=== PATIENT | female | born 2000 | race Caucasian/White ===

== ENCOUNTER → 2021-12-14 13:00 | Outpatient (BNVA) | payer OTHER, SELFPAY | PROVIDERS: Visit Provider Nurse Practitioner Women's Health | DX: Z30.9 Encounter for contraceptive management, unspecified (principal) | CPT/HCPCS: 81025 ==

== ENCOUNTER → 2023-02-07 13:25 | Outpatient (BNVA) | payer BC, SELFPAY | PROVIDERS: Visit Provider Nurse Practitioner Women's Health | DX: Z12.4 Encounter for screening for malignant neoplasm of cervix (principal); Z11.3 Encounter for screening for infections with a predominantly sexual mode of transmission | CPT/HCPCS: 86592; 86706; 86803; 87491; 87591; 87806; 88175 ==

== ENCOUNTER → 2023-02-21 12:22 | Outpatient (BNVA) | payer BC, SELFPAY | PROVIDERS: Visit Provider Nurse Practitioner Women's Health | DX: N93.9 Abnormal uterine and vaginal bleeding, unspecified (principal) | CPT/HCPCS: 76830 ==

== ENCOUNTER 2023-08-20 08:27 | Emergency (ER) | payer BC, MEDICAID, SELFPAY ==
[2023-08-20 08:35] VITALS: BP 129/70; PULSE 69; RESP 18; TEMP 36.8; O2SAT 100; BMI 27.2
--- NOTE | 2023-08-20 08:58 | CT_ITS ---
WS: [id number] CT HEAD TECHNIQUE: Noncontrast CT of the head obtained from the skullbase to the vertex. CLINICAL INFORMATION: Headache vision changes right eye 24 weeks COMPARISON: None. DLP: 1006.[address] scans at [facility] use at least one of these dose optimization techniques: automated e xposure control; mA and/or kV adjustment per patient size (includes targeted exams where dose is matc hed to clinical indication); or iterative reconstruction. FINDINGS: No evidence of intracranial hemorrhage or mass effect. Ventricular system and basal cisterns are hunter nt. No extra-axial fluid collections. No evidence of mass or mass effect. Normal ruiz-white different iation. Incidental slightly low-lying cerebellar tonsils. Paranasal sinuses and mastoid air cells are well aerated. .Normal visualized soft tissues. CT/CT head wo con* [id number] IMPRESSION: 1. No evidence of intracranial hemorrhage or mass effect. 2. No acute intracranial findings.
--- NOTE | 2023-08-20 08:58 | ED_ITS ---
HPI - Headache General: Chief Complaint: Headache Stated Complaint: GOOD, facial and arm numbness Time Seen by Provider: 08/20/23 08:41 Source: patient Mode of arrival: ambulatory History of Present Illness: 22-year-old female presents emergency ro om with headache with facial numbness and right arm numbness with vision changes. She had told the nurse it was in her left eye but when I examined her she was reporting it in the right eye. She is approximately 24 weeks gestation. She states when she woke up this morning she had the headache numbness and vision changes. She has had headaches during the but none prior no previous evaluation for headache. MD elicited complaint: migraine Associated symptoms: Deny chest pain, fever(s) or rash Review of Systems Const: Denies: fever(s) or chills Card: Denies: chest pain Resp: Denies: dyspnea GI: Denies: abdominal pain : Denies: dysuria, urinary frequency or urinary urgency Musc: Denies: neck pain or back pain Skin/Breast: Denies: rash PFSH ED PFSH: Medical History No pertinent past medical history neghx: htn,dm,thyroid,dvt/pe PCP: None Surgical History Hx of wisdom tooth extraction (~2019) Family History Family/Other Stroke Maternal Aunt Denies family history of Colon cancer Ovarian cancer Diabetes Heart disease Hypercholesteremia Breast cancer Hypertension Uterine cancer Thyroid disease Physical Exam Const: GENERAL APPEARANCE: cooperative and comfortable ORIENTATION/CONSCIOUSNESS: Yes awake, Yes oriented to person, Yes oriented to place and Yes oriented to time HENMT: COMMON NORMALS: normocephalic, atraumatic and hearing grossly normal bilaterally HEAD & SCALP: normocephalic and atraumatic Resp: COMMON NORMALS: normal respiratory effort, No retractions, No use of accessory muscles and clear to auscultation bilaterally AUSCULTATION: clear to auscultation bilaterally Cardio: COMMON NORMALS: regular rate, regular rhythm and No murmurs present (Cardio) RATE: regular rate RHYTHM: regular rhythm GI: COMMON NORMALS: Soft to palpation and No hepatosplenomegaly present AUSCULTATION: Yes normoactive bowel sounds PALPATION: Yes Soft to palpation, No Tenderness to palpation present (GI), No Guarding due to palpation present (GI) and Yes No hepatosplenomegaly present Extremity: COMMON NORMALS: normal to inspection, capillary refill normal, no clubbing, cyanosis or edema, no calf tenderness and no pedal edema Neuro: SENSORIUM/ORIENTATION: Yes oriented to person, Yes oriented to place and Yes oriented to time OTHER: NIH 0 Skin: COMMON NORMALS: no rashes or lesions noted GENERAL SKIN EXAM: no rashes or lesions noted Course Vital Signs: Vital signs: Vital Signs Temperature 98.3 F 08/20/23 08:35 Pulse Rate 69 08/20/23 08:35 Respiratory Rate 18 08/20/23 08:35 Blood Pressure 122/66 08/20/23 10:00 Pulse Oximetry 99 08/20/23 10:00 Oxygen Delivery Me thod Room Air 08/20/23 08:35 MDM - Headache Medical Decision Making Improved after the Benadryl and Reglan patient declined to fluids CT of the head was negative. Any she is having a migraine variant all of her symptoms she presented with have resolved along with her headache. She is requesting to go home declining the fluids. Will discharge her home with promethazine to use as needed for recurrent headache. She can take that along with Tylenol if needed and encouraged her to follow-up at least by phone with her OB doctor. She has an appointment next week with Dr. Bustillos for routine OB care Medical Records I reviewed the patient's medical records. Lab Data I reviewed the patient's lab results. Radiology Impressions Head CT 08/20/23 08:58 IMPRESSION: 1. No evidence of intracranial hemorrhage or mass effect. 2. No acute intracranial findings. All radiology interpretation(s) finalized by discharge Discharge Plan Discharge Patient Disposition: Home Clinical Impression: Migraine variant, state, incidental Condition: Stable Prescriptions: New promethazine 25 mg tablet 25 mg PO Q6H PRN (Reason: headache) Qty: 10 0RF Discharge Orders: Discharge ED (Routine); Ordered 08/20/23 Ordered By: Tapan Elliott Discharge Diet: Usual diet Discharge Activity: Resume usual activity Patient Instructions: Opioid Safety, Pain Management Activity Restrictions/Additional Instructions: Thank you for choosing [facility] for your healthcare needs today. It is very important that you follow up as instructed or that you return to the Emergency Department should you have concerns or if your condition changes or worsens in any way. You were seen today with a migraine variant. You did respond well to the medications given. Follow-up with your primary care doctor within the week. Jenny anguiano CT of your head did not show any acute abnormalities Coding Level of Care Code ED Mold Technician for Viviana York
[2023-08-20 09:00] VITALS: BP 129/70; O2SAT 99
[2023-08-20] MEDS: sodium chloride 0.9% 1,000 ML 999 ML IV (09:04)
[2023-08-20] MEDS: diphenhydrAMINE 50 mg/mL SDV 1mL IVP (09:05)
[2023-08-20] MEDS: metoclopramide 5 mg/mL SDV 2 mL 10 MG IVP (09:05)
--- NOTE | 2023-08-20 09:15 | PC.NURSE ---
Patient called me into the room and stated I don't want to do this any more . Patient stated that she wanted to talk to the doctor now . Patient stated that she feels like she is going to pass out. I stopped the patient's fluids and told her that the Benadryl was making her feel like she was going to pass out. I spoke with the patient and told her to try and take a few deep breaths in through her nose and out through her mouth. Patient stated it is not helping I want to see the doctor . I spoke with Lexi, he was on a call, he told me to go reassure the patient it is the benadryl making her feel like that. I asked my charge nurse, Sil, to come with me in the room to help reassure the patient and the patient continued to say she was going to pass out and that she didn't want to do this any more. Sil and I placed the patient in the Trendelenburg position and once again instructed her to breath in through her nose and out through her mouth.
[2023-08-20 09:35] VITALS: BP 112/67; O2SAT 100
[2023-08-20 10:00] VITALS: BP 122/66; O2SAT 99
== END 2023-08-20 10:22 | disposition home or self-care (01) ==
PROVIDERS: Emergency Provider Family Medicine
DX: O26.892 Other specified pregnancy related conditions, second trimester (principal); Z3A.24 24 weeks gestation of pregnancy; G43.809 Other migraine, not intractable, without status migrainosus
CPT/HCPCS: 70450; 96374; 96375; 99285; J1200; J2765; J7030

== ENCOUNTER 2023-12-10 02:07 | Inpatient (IN) | payer BC, MEDICAID, SELFPAY ==
[2023-12-10] VITALS (53 sets, daily range): BP systolic 93–158; BP diastolic 50–89; PULSE 60–101; RESP 20; TEMP 36.6–36.9; BMI 30.6
[2023-12-10 02:27] LABS: Basophils % 0.2 %; Eosinophils # 0.1 10^3/uL (0.0-0.8); Eosinophils % 1.1 %; Hematocrit 35.9 % (36-47); Lymphocytes # 2.5 10^3/uL (0.8-4.8); Mean Corpuscular HGB Conc 32.3 g/dL (30-55); Mean Corpuscular Hemoglobin 28.4 pg (27-33); Mean Platelet Volume 10.1 fL (7.4-10.4); Monocytes # 0.9 10^3/uL (0.2-0.9); Monocytes % 8.1 %; Neutrophils # 7.64 10^3/uL (1.8-7.7); Neutrophils % 67.8 %; Nucleated Red Blood Cells % 0 %; Platelet Count 188 10^3/cmm (157-399); Red Blood Count 4.08 10^6/uL (3.85-5.65); Red Cell Distribution Width 13.4 % (12.1-15.1); White Blood Count 11.26 10^3/uL (3.29-11.43)
[2023-12-10] MEDS: miSOPROStol 100 mcg tablet 25 MCG SUBLINGUAL ×2 (05:48→09:58)
--- NOTE | 2023-12-10 09:31 | PM.OPHPUD ---
Labor & Delivery H&P Update Date of Procedure: December 10, 2023 Date H&P Performed: 01/03/24 Changes to previous documentation: Rupture membranes Admission Diagnosis: 23-year-old 1 at 39-week and 6 days estimated gestational age presenting with spontaneous rupture membranes Planned procedure: Spontaneous vaginal delivery Other information: The patient has an otherwise healthy 39-week and 6-day female presenting to the hospital with spontaneous rupture membranes. Her membranes ruptured at about midnight. The membrane rupture was confirmed by noticing gross rupture membranes and nitrazine positive.The patient had a strong desire to have as natural delivery as possible upon arrival including minimizing of augmenting medications. We had a long discussion about the risks of delaying augmenting medications in her office. We also once again we discussed that here in the hospital as well. Her is otherwise been relatively unremarkable. Her blood type is O+. Her antibody screen is negative. Her infectious disease profile is within normal limits. She is rubella immune. Her drug screen was negative.Her group B strep status is negative. Related Problem List Diagnoses (1) 39 weeks gestation of : A&P Assessment and plan (1) 39 weeks gestation of : Proceed with augmentation of labor. We will do our best to balance the patient's wishes of minimal intervention with the risks to the patient and her . Status: Acute
[2023-12-10] MEDS: fentaNYL 50 mcg/mL INJ 2mL IVP (16:30)
[2023-12-10] MEDS: ROPivacaine syringe 100 MG/50 ML SYRINGE 10 MG EPIDURAL ×4 (17:30→23:56)
--- NOTE | 2023-12-10 17:31 | ANES.PAUD2 ---
Pre-Anesthetic Update Pre-Anesthetic Assessment: Date of Surgery/Procedure: 12/10/23 Proposed Procedure: IUP Any changes to Pre-Anesthetic Assessment?: No Labs Last 48hrs: Short CBC 12/10/23 Range/Units 02:15 WBC 11.26 (3.29-11.43) 10^ 3/uL Hgb 11.60 (11.27-16.99) g/ dL Hct 35.9 L (36-47) % MCV 88.0 (85-98) fl Plt Count 188 (157-399) 10^3/c mm Neut % (Auto) 67.8 % Neut # (Auto) 7.64 (1.8-7.7) 10^3/u L Blood Bank 12/10/23 02:15 Blood Type O Positive Rho(D) Type Rh positive Antibody Screen Negative Vitals: Temperature 97.9 F 12/10/23 13:45 Pulse Rate 80 12/10/23 17:29 Pulse Rhythm Regular 12/10/23 02:15 Pulse Strength 3+ Normal 12/10/23 02:15 Respiratory Rate 20 H 12/10/23 16:30 Respiratory Effort Spontaneous, Non- Labored 12/10/23 02:15 Respiratory Depth Normal 12/10/23 02:15 Respiratory Patter n Normal 12/10/23 02:15 Blood Pressure 148/63 12/10/23 17:29 Oxygen Delivery Me thod Room Air 12/10/23 02:15 Exam: Pre-Anes Outpt Exam: alert, oriented x 3, clear to auscultation bilaterally and regular rate & rhythm Cardiac Studies: No Data to Display
--- NOTE | 2023-12-10 17:31 | ANES.PROC ---
Anesthesia Procedures Procedure/Date: 12/10/23 Epidural: Time Out Performed: Yes Consents Signed: Procedure Consent Consent: requested by attending/covering physician, from patient, from other and risks and benefits reviewed Lumbar Level: L3-L4 Epidural position: sitting Epidural procedure: sterile prep of area, 1% lidocaine to numb the area, 18 g needle, negative for paresthesia passed, neg for paresthesia, test dose given, 1.5% xylocaine 1:200k epi (5 ml), 0.2% Ropivacaine bolus ml (5 ml), placed PCEA, no systemic response, sterile dressing applied, L.U.D. no apparent complications and 0.2% Ropiavacaine @ mls/hr (10 ) Additional Comments: POLINA at 6 cm, threaded to 12 cm. Patient reported decreased pain of contraction from 10/10 to 5/10 with subsequent contraction
[2023-12-10] MEDS: oxytocin 30 UNIT/500 ML BAG IV (19:00)
[2023-12-10] MEDS: dextrose 5%-lactated ringers 1,000 ML 125 ML IV (20:51)
[2023-12-10] MEDS: calcium carbonate 500 mg Chew Tablet 1000 MG PO (22:50)
[2023-12-11] VITALS (25 sets, daily range): BP systolic 103–185; BP diastolic 53–139; PULSE 68–102; RESP 16–20; TEMP 36.6–37.6; O2SAT 95–100
[2023-12-11] MEDS: ondansetron 2 mg/ML SDV 2 mL 4 MG IVP (00:02)
[2023-12-11] MEDS: lactated ringers 1,000 ML 999 ML IV ×2 (00:55→01:07)
[2023-12-11] MEDS: ceFAZolin 2,000 mg SDV 2000 MG IVP (01:00)
[2023-12-11] MEDS: citric acid-sodium citrate 30 mL UDC PO (01:07)
[2023-12-11] MEDS: metoclopramide 5 mg/mL SDV 2 mL 10 MG IVP (01:08)
[2023-12-11] MEDS: famotidine 20 mg/2 mL INJ IVP (01:10)
[2023-12-11] MEDS: BUPivacaine 0.5% INJ 30 mL INJECTION (01:53)
--- NOTE | 2023-12-11 02:24 | PM.OP ---
Operative Report Date of procedure: December 11, 2023 Pre-op diagnosis: 1. 23-year-old 1 at 40 weeks estimated gestational age with spontaneous rupture membranes x 24 hours 2. Nonreassuring heart tones Post-op diagnosis: same Procedure done: Lower transverse section Specimens removed/disposition: 1. Male with Apgars 9, 9 of and weight of 3740 g 2. Placenta with three-vessel cord delivered intact Surgeon: Izaiah Bustillos MD Estimated blood loss (mL): 800 Complications: None Procedure: The patient was brought back to the operating room where she was prepped and draped in usual sterile fashion. Anesthesia was found to be adequate. A lower transverse skin incision was then made with a #10 blade. I then dissected down to the underlying subcutaneous tissue until arriving at the prerectal fascia. The fascia was then nicked with the scalpel bilaterally. The fascial incisions were then carried laterally with Yoder scissors. Attention was then turned to the superior aspect of the incision which was grasped with kochers and tented up away from the underlying rectus abdominis muscles. The muscles were then dissected away from the fascia manually, and later with Yoder scissors. Attention was then turned to the inferior aspect of the incision, and the fascia was dissected away from the underlying muscle in similar fashion. The rectus abdominis muscles were then spread manually. The peritoneum was entered manually. Excellent visualization of the uterus was noted. A lower transverse uterine incision was then made with a #10 blade. Upon arriving at the intrauterine cavity, the uterine incision was then extended manually. The infant was noted to be in vertex position. The baby was delivered without difficulty. After delivery of the head, the mouth and nose were suctioned at the site of the incision. Thick meconium was noted.. There was a body cord x 1. The cord was cut and clamped. The baby was then handed to Dr. Dunlap. The placenta was removed intact. The uterus was externalized. The intrauterine cavity was cleansed of any remaining debris. The uterine incision was reapproximated in 2 layers. The first layer was performed with 0 Vicryl in a running locked stitch. The second layer was an imbricating stitch also using 0 Vicryl. The uterus was replaced into the abdomen. The peritoneum was then irrigated with warm saline. I reexamined the uterine incision and found it to be hemostatic. The rectus abdominis muscles were then reapproximated using 0 Vicryl in a running stitch. The fascia was then reapproximated using 0 Vicryl in running stitch. The subcutaneous tissue was then reapproximated using 0 Vicryl in a running stitch. The skin was reapproximated using sourav. A sterile dressing was placed. All counts were correct x2. Both the mother and baby were in stable condition.
[2023-12-11] MEDS: dextrose 5%-lactated ringers 1,000 ML 125 ML IV (06:16)
[2023-12-11 07:29] LABS: Hematocrit 29.7 % (36-47); Mean Corpuscular HGB Conc 32.7 g/dL (30-55); Mean Corpuscular Hemoglobin 28.6 pg (27-33); Mean Corpuscular Volume 87.6 fl (85-98); Mean Platelet Volume 10.3 fL (7.4-10.4); Platelet Count 149 10^3/cmm (157-399); Red Blood Count 3.39 10^6/uL (3.85-5.65); Red Cell Distribution Width 13.6 % (12.1-15.1); White Blood Count 24.71 10^3/uL (3.29-11.43)
[2023-12-11] MEDS: ketorolac 30 mg/mL INJ IVP (09:19)
[2023-12-11] MEDS: ferrous sulfate EC 325 mg Tablet PO ×2 (09:19→18:47)
[2023-12-11] MEDS: PRENATAL VIT NO.130/IRON/FOLIC 1 EACH TABLET PO (09:19)
[2023-12-11] MEDS: docusate sodium 100 mg Capsule PO ×2 (09:19→18:47)
[2023-12-11] MEDS: ibuprofen 800 mg tablet PO ×2 (15:10→20:23)
[2023-12-11] MEDS: HYDROcodone-acetaminophen 5-325 mg Tablet PO (20:22)
[2023-12-11] MEDS: simethicone 80 mg Chew PO (20:23)
[2023-12-12 03:38] VITALS: BP 106/67; PULSE 88; RESP 18; TEMP 36.6; O2SAT 99
[2023-12-12] MEDS: PRENATAL VIT NO.130/IRON/FOLIC 1 EACH TABLET PO (09:41)
[2023-12-12] MEDS: ferrous sulfate EC 325 mg Tablet PO (09:41)
[2023-12-12] MEDS: ibuprofen 800 mg tablet PO (09:41)
[2023-12-12] MEDS: docusate sodium 100 mg Capsule PO (09:42)
[2023-12-12 10:45] VITALS: BP 123/68; PULSE 96; RESP 18; TEMP 36.5; O2SAT 97
[2023-12-12] MEDS: acetaminophen 325 mg Tablet 650 MG PO (13:17)
--- NOTE | 2023-12-12 13:32 | P.PN_ITS ---
JOURNEYMAN MOLDER Subjective 2 Labor: Station: -2 Amniotic Membrane Status: Ruptured Monitor Mode: External Contraction Pattern: Regular Vitals/I&O/Wt Last Vital Signs Temp 97.7 F 12/12/23 10:45 Pulse 96 12/12/23 10:45 Resp 18 12/12/23 10:45 BP 123/68 12/12/23 10:45 Pulse Ox 97 12/12/23 10:45 O2 Del Method Room Air 12/12/23 10:45 12/11/23 12/12/23 12/12/23 22:59 06:59 14:59 Output Total 1100 / 1325 Balance -1100 / -493.75 Physical Exam 2 Narrative: She is in no acute distress Lungs are clear auscultation bilaterally Her heart has a regular rate and rhythm Her fundus is below the umbilicus and firm Her dressing is clean, dry and intact Her extremities have trace edema Urinary Catheter Management: Gates: Cath Placed During This Visit: yes, but has since been removed by the nurse Reason for Continuing Indwelling Catheter: Decision to DC Catheter Urinary Catheter Date of Insertion: 12/10/23 Urinary Catheter Time of Insertion: 18:15 Date Urinary Catheter Removed: 12/11/23 Time Urinary Catheter Discontinued: 17:39 Data 12/11/23 07:15 Coding Level of Care Code Acute Code for Chg Fwd
--- NOTE | 2023-12-12 16:24 | PM.OBGYDC ---
Discharge Providers HANDER IN Date of Admission: 12/10/23 02:07 Date of Discharge: 12/16/23 Attending Provider at Admission: Izaiah Bustillos MD Attending Provider at Discharge: Izaiah Bustillos MD Primary Care Provider: Izaiah Bustillos MD Diagnoses at Discharge Discharge Diagnosis (1) 39 weeks gestation of : Status: Resolved Reason for Visit Reason for Visit: Poss. SROM Hospital Course Hospital Course The patient presented to the hospital with rupture membranes. The patient's labor was augmented. During the labor process the the baby was noted to have nonreassuring heart tones. Despite interventions, the patient was not making adequate change, and the nonreassuring heart tones continued. A was performed. Her course was unremarkable. Her pain was well-controlled. Her bleeding was within normal limits. Information Peripartum Data: Infant Delivery Method: Physical Exam Narrative: She is in no acute distress Lungs are clear auscultation bilaterally Her heart has a regular rate and rhythm Her fundus is below the umbilicus and firm Her dressing is clean, dry and intact Her extremities have trace edema Urinary Catheter Management: Gates: Cath Placed During This Visit: yes, but has since been removed by the nurse Reason for Continuing Indwelling Catheter: Decision to DC Catheter Urinary Catheter Date of Insertion: 12/10/23 Urinary Catheter Time of Insertion: 18:15 Date Urinary Catheter Removed: 12/11/23 Time Urinary Catheter Discontinued: 17:39 History History History 0 Term Miscarriages/Ectopic Living Children Discharge Data Studies Completed and Pending Laboratory Results WBC 24.71 10^3/uL (3.29-11.43) H 12/11/23 07:15 RBC 3.39 10^6/uL (3.85-5.65) L 12/11/23 07:15 Hgb 9.70 g/dL (11.27-16.99) L 12/11/23 07:15 Hct 29.7 % (36-47) L 12/11/23 07:15 MCV 87.6 fl (85-98) 12/11/23 07:15 MCH 28.6 pg (27-33) 12/11/23 07:15 MCHC 32.7 g/dL (30-55) 12/11/23 07:15 RDW 13.6 % (12.1-15.1) 12/11/23 07:15 Plt Count 149 10^3/cmm (157-399) L 12/11/23 07:15 MPV 10.3 fL (7.4-10.4) 12/11/23 07:15 Neut % (Auto) 67.8 % 12/10/23 02:15 Lymph % (Auto) 22.0 % 12/10/23 02:15 Pickett % (Auto) 8.1 % 12/10/23 02:15 Eos % (Auto) 1.1 % 12/10/23 02:15 Baso % (Auto) 0.2 % 12/10/23 02:15 Neut # (Auto) 7.64 10^3/uL (1.8-7.7) 12/10/23 02:15 Lymph # (Auto) 2.5 10^3/uL (0.8-4.8) 12/10/23 02:15 Pickett # (Auto) 0.9 10^3/uL (0.2-0.9) 12/10/23 02:15 Eos # (Auto) 0.1 10^3/uL (0.0-0.8) 12/10/23 02:15 Baso # (Auto) 0.0 10^3/uL (0.0-0.1) 12/10/23 02:15 Nucleated RBC % (auto) 0 % 12/10/23 02:15 Nucleated RBCs # 0.0 /100WBC 12/10/23 02:15 Blood Type O Positive 12/10/23 02:15 Rho(D) Type Rh positive 12/10/23 02:15 Antibody Screen Negative 12/10/23 02:15 Vitals Last Vital Signs Temp 97.7 F 12/12/23 10:45 Pulse 96 12/12/23 10:45 Resp 18 12/12/23 10:45 BP 123/68 12/12/23 10:45 Pulse Ox 97 12/12/23 10:45 O2 Del Method Room Air 12/12/23 10:45 Results Labs OB ([facility]): Blood Type O Positive 12/10/23 Antibody Screen Negative 12/10/23 Hct 29.7 % (36-47) L 12/11/23 Hgb 9.70 g/dL (11.27-16.99) L 12/11/23 Rho(D) Type Rh positive 12/10/23 Plt Count 149 10^3/cmm (157-399) L 12/11/23 Hep Bs Antibody < 3.5 (11.5-1000) L 03/14/23 Hepatitis C Antibody Non-reactive (Nonreactive) 02/07/23 Rubella IgG Antibody 300.7 IU/mL (0.0-10.0) H 03/14/23 RPR Nonreactive (Nonreactive) 02/07/23 HIV 1&2 Ab & HIV 1 Ag Non-reactive (Non-Reactiv) 02/07/23 C.trachomatis RNA (TMA) Not detected (NOT DETECTED) 02/07/23 N.gonorrhoeae RNA (TMA) Not detected (NOT DETECTED) 02/07/23 T. vaginalis Amp RNA Not detected (NOT DETECTED) 02/07/23 Chlamydia/GC Comment See note 02/07/23 Uric Acid 3.7 mg/dL (2.4-5.7) 08/21/23 VZV IgG Antibody <135.00 index L 03/14/23 Pap Smear Interpret See note 02/07/23 Discharge Plan Discharge Patient Disposition: Home Prescriptions: New ibuprofen 800 mg Tablet 800 mg PO TID Qty: 45 0RF hydrocodone-acetaminophen 5-325 mg Tablet 1 - 2 tab PO Q4H PRN (Reason: Moderate To Severe Pain) Qty: 28 0RF Continued 1 tab PO DAILY Discharge Orders: Discharge Order (Routine); Ordered 12/12/23 Ordered By: Izaiah Bustillos Referrals: Izaiah Bustillos MD [Primary Care Provider] - 12/19/23 2:20 pm Discharge Diet: Usual diet Discharge Activity: Limit activity as instructed Patient Instructions: Depression (DC), Opioid Safety (DC), Preeclampsia and Eclampsia After Delivery (GEN), Hemorrhage (DC), OB Discharge Report, OB Food/Drug Interaction Guide, OB Care at Home, Opioid Safety, OB Vaginal Deliveries, Abnormal Bleeding Discharge Attestations HANDER IN Time Spent in Discharge Care*: less than 30 min Coding Level of Care Code Acute Code for Chg Fwd Diagnoses 39 weeks gestation of Z3A.39
[2023-12-12 16:45] VITALS: BP 112/69; PULSE 89; RESP 16; TEMP 36.6; TEMP 36.7; O2SAT 99
--- NOTE | 2023-12-14 07:43 | ANE.PACU2 ---
Inpatient post-anesthesia follow up: Airway intact: Yes Vital signs: Temperature 98 F Pulse Rate 89 Respiratory Rate 16 Blood Pressure 112/69 Pulse Oximetry 99 Oxygen Delivery Me thod Room Air Oxygen Flow Rate Fraction of Inspir ed Oxygen Hydration adequate: Yes Nausea and vomiting: No Pain level: 1 Mental status: Baseline Additional Comments: Went to at 0019 on 12/10 Epidural Start/End: Epidural Start Date: 12/10/23 Epidural Start Time: 17:00 Epidural End Date: 12/11/23 Epidural End Time: 01:05
== END 2023-12-12 17:30 | disposition home or self-care (01) | DRG 788 ==
LOC: OPOB 02:08 → OBGYN 02:08
PROVIDERS: Admitting Provider Family Medicine; PCP Family Medicine; Visit Provider Family Medicine
PROC: 10D00Z1 Extraction of Products of Conception, Low, Open Approach (ICD-10-PCS; CPT 59514; principal; 2023-12-11 01:20)
DX: O76 Abnormality in fetal heart rate and rhythm complicating labor and delivery (principal); Z37.0 Single live birth; Z3A.40 40 weeks gestation of pregnancy; O69.81X0 Labor and delivery complicated by cord around neck, without compression, not applicable or unspecified; O77.0 Labor and delivery complicated by meconium in amniotic fluid
CPT/HCPCS: 36415; 51702; 59025; 59409; 83986; 85025; 85027; 86850; 86900; 96374; 96376; 98960; 99211; J0690; J1885; J2274; J2405; J2590; J2765; J2795; J3010; J3490; J7120; J7121

== ENCOUNTER 2024-12-03 22:05 | Emergency (ER) | payer BC, MEDICAID, SELFPAY ==
[2024-12-03 22:13] VITALS: BP 160/78; PULSE 82; RESP 16; TEMP 36.4; O2SAT 98; BMI 23.8
--- OUTSIDE RECORDS SUMMARY | 2024-12-03 22:30 | XMS_ITS | Data Portability ---
Author Organization [facility] Address [address] [address] Care Team Providers Care Area Supervisor Name Role Phone YURIDIA JARAMILLO Primary Care Provider Assessment Encounter Date Assessment Date Assessment LastModified by Organization Details LastModified Time 01/16/2024 01/16/2024 We discussed contraceptive options, and she would like to hold off on anything at this time. Not available 02/15/2024 12:07:40 09/09/2024 09/09/2024 She will make sure that she has a negative test prior to unprotected sex. We discussed control options, and she will let me know if she would like to consider something. Not available 09/09/2024 22:37:52 Plan of Treatment Reminders Order Date Submit Date Provider Last Modified By Organization Details Last Modified Time Details Appointments OFFICE VISIT 20 2024 01:00P Magali Jaramillo MD Not available Not available Not available Lab CBC 2024 025 LURDESMARIANELA [facility], [address], [place], [address], 04/23/2024 17:19:34 CMP, serum or plasma 2024 025 LURDESMARIANELA [facility], [address] [facility] [address], [place], [address], 04/23/2024 17:27:30 SARS CoV 2 RNA, QL, nasophary nx 2024 025 [email or web address] [facility] ([facility] [address] [place], [address], 04/15/2024 17:54:25 Referral None recorded. Procedures None recorded. Surgeries None recorded. Imaging electroca rdiogram, routine ECG, 12 leads min 2024 025 [email or web address] [facility] ([facility]), [address] [place], [address], 04/24/2024 11:23:53 Medication Orders fluticaso ne propionat e 50 mcg/actua tion nasal spray,anders pension 2024 025 [id number] [address] [facility], [address], [address], 04/23/2024 15:34:28 meclizine 12.5 mg tablet 2024 025 [id number], [address], [facility] [[email or web address] [place], [address], 04/23/2024 15:34:36 hydrocort isone 2.5 % topical cream 2023 024 [id number], [address], [facility] [[email or web address] [place], [address], 01/16/2024 10:54:38 clotrimaz ole 1 % topical cream 2023 024 [id number], [address], [facility] [[email or web address] [place], [address], 01/16/2024 10:54:34 Patient TargetsNo targets recorded. Patient InstructionsNo instructions recorded. Reason for Referral None Reported. Results Created Date Observation Date Name Description Value Unit Range Abnormal Flag Note LastModifiedBy Organization Detail LastModifiedTime 11/26/1911/26/2023 CBC WBC 10.4 x10 4.0-10 .5 Not Available [facility] [address], [place], [address], 11/26/2023 12:12:26 11/26/1911/26/2023 CBC RBC 3.75 x10 3.50-5 .50 Not Available [facility] [address], [place], [address], 11/26/2023 12:12:26 11/26/1911/26/2023 CBC HGB 11.1 g/dL 12.0-1 6.0 low Not Available [facility] [address], [place], [address], 11/26/2023 12:12:26 11/26/1911/26/2023 CBC HCT 32.9 % 37.0-4 7.0 low Not Available [facility] [address] [facility] [address] [facility] [[email or web address] 1, [place], [address], 11/26/2023 12:12:26 11/26/19 24 11/26/2023 CBC MCV 87.7 fL 80.0-9 9.9 Not Available [facility] [address] [facility] [address] [facility] [[email or web address] 1, [place], [address], 11/26/2023 12:12:26 11/26/1911/26/2023 CBC MCH 29.7 pg 27.0-3 2.0 Not Available [facility] [address] [facility] [address], [place], [address], 11/26/2023 12:12:26 11/26/1911/26/2023 CBC MCHC 33.8 g/dL 32.0-3 6.0 Not Available [facility] [address] [facility] [address] [facility] [[email or web address] 1, [place], [address], 11/26/2023 12:12:26 11/26/19 24 11/26/2023 CBC RDW 13.9 % 11.5-1 4.5 Not Available [facility] [address] [facility] [address] [facility] [[email or web address] 1, [place], [address], 11/26/2023 12:12:26 11/26/19 24 11/26/2023 CBC plt 144.0 x10 140.0- 451.0 Not Available [facility] [address] [facility] [[email or web address]] 1, [place], [address], 11/26/2023 12:12:26 11/26/1911/26/2023 CBC lymphocytes % 15.8 % 20.0-5 0.0 low Not Available [facility] [address] [address], [place], [address], 11/26/2023 12:12:26 11/26/19 24 11/26/2023 CBC granulcytes % 75.8 % 30.0-7 0.0 high Not Available [facility] [address] [address], [place], [address], 11/26/2023 12:12:26 11/26/19 24 11/26/2023 CBC monocytes % 7.1 % 2.0-16 .0 Not Available [facility] [address] [facility], [place], [address], 11/26/2023 12:12:26 11/26/19 24 11/26/2023 CBC granulcytes# 7.9 x10 Not Ryanne ilable [facility] [address] [facility], [place], [address], 11/26/2023 12:12:26 11/26/19 24 11/26/2023 CBC lymphocytes # 1.7 x10 Not Available [facility] [address] [place], [address], 11/26/2023 12:12:26 11/26/19 24 11/26/2023 CBC monocytes # 0.8 x10 Not Avai lable [facility] [address] [facility] [[email or web address] 1, [place], [address], 11/26/2023 12:12:26 04/16/19 25 04/15/2024 SARS CoV 2 RNA, QL, nasop haryn x COVID negati ve Not Available [facility] ([facility]) [address] [place], [address], 04/15/2024 17:35:20 04/24/19 25 04/23/2024 CBC WBC 6.8 x10 4.0-10 .5 Not Available [facility] [address] [facility] 1, [place], [address], 04/23/2024 17:19:34 04/24/19 25 04/23/2024 CBC RBC 5.06 x10 3.50-5 .50 Not Available [facility] [address] [facility], [place], [address], 04/23/2024 17:19:34 04/24/19 25 04/23/2024 CBC HGB 14.5 g/dL 12.0-1 6.0 Not Available [facility] [address] [facility], [place], [address], 04/23/2024 17:19:34 04/24/19 25 04/23/2024 CBC HCT 44.2 % 37.0-4 7.0 Not Available [facility] [address] [facility] [address] [facility] [[email or web address] 1, [place], [address], 04/23/2024 17:19:34 04/24/19 25 04/23/2024 CBC MCV 87.3 fL 80.0-9 9.9 Not Available [facility] [address] [facility] [address] [facility] [[email or web address] 1, [place], [address], 04/23/2024 17:19:34 04/24/19 25 04/23/2024 CBC MCH 28.6 pg 27.0-3 2.0 Not Available [facility] [address] [facility] [address] [facility] [[email or web address] 1, [place], [address], 04/23/2024 17:19:34 04/24/19 25 04/23/2024 CBC MCHC 32.8 g/dL 32.0-3 6.0 Not Available [facility] [address] [facility] [address] [facility] [[email or web address] 1, [place], [address], 04/23/2024 17:19:34 04/24/19 25 04/23/2024 CBC RDW 15.2 % 11.5-1 4.5 high Not Available [facility] [address] [facility] [address] [facility] [[email or web address] 1, [place], [address], 04/23/2024 17:19:34 04/24/19 25 04/23/2024 CBC plt 188.2 x10 140.0- 451.0 Not Available [facility] [address] [facility] [address] [facility] [[email or web address] 1, [place], [address], 04/23/2024 17:19:34 04/24/19 25 04/23/2024 CBC lymphocytes % 43.8 % 20.0-5 0.0 Not Available [facility] [address] [facility] [address] [facility] [[email or web address] 1, [place], [address], 04/23/2024 17:19:34 04/24/19 25 04/23/2024 CBC granulcytes % 43.2 % 30.0-7 0.0 Not Available [facility] [address] [facility] [address] [facility] [[email or web address] 1, [place], [address], 04/23/2024 17:19:34 04/24/19 25 04/23/2024 CBC monocytes % 9.6 % 2.0-16 .0 Not Available [facility] [address] [address], [place], [address], 04/23/2024 17:19:34 04/24/19 25 04/23/2024 CBC granulcytes# 3.0 x10 Not Ryanne ilable [facility] [address] [address], [place], [address], 04/23/2024 17:19:34 04/24/19 25 04/23/2024 CBC lymphocytes # 3.0 x10 Not Available [facility] [address] [address], [place], [address], 04/23/2024 17:19:34 04/24/19 25 04/23/2024 CBC monocytes # 0.7 x10 Not Avai lable [facility] [address] [address], [place], [address], 04/23/2024 17:19:34 04/24/19 25 04/23/2024 CMP (FEMA LE) glucose 77.0 mg/dL 60.0-9 9.0 Not Available [facility] [address] [address], [place], [address], 04/23/2024 17:27:30 04/24/19 25 04/23/2024 CMP (FEMA LE) BUN (blood urea nitrogen) 12.0 mg/dL 10.0-2 6.0 Not Available [facility] [address] [address], [place], [address], 04/23/2024 17:27:30 04/24/19 25 04/23/2024 CMP (FEMA LE) creatinine (serum) 0.8 mg/dL 0.4-1. 5 Not Available [facility] [address] [address], [place], [address], 04/23/2024 17:27:30 04/24/19 25 04/23/2024 CMP (FEMA LE) BUN/creatini ne ratio 15.00 ratio Not Available [facility] [address] [facility] 1, [place], [address], 04/23/2024 17:27:30 04/24/19 25 04/23/2024 CMP (FEMA LE) eGFR calculated 95.3 Not Available [facility] [address] [facility] 1, [place], [address], 04/23/2024 17:27:30 04/24/19 25 04/23/2024 CMP (FEMA LE) total protein 7.8 g/dL 6.0-8. 5 Not Available [facility] 5 [facility] 1, [place], [address], 04/23/2024 17:27:30 04/24/19 25 04/23/2024 CMP (FEMA LE) total bilirubin 0.3 mg/dL 0.2-1. 3 Not Available [facility] [address] [facility] [address], [place], [address], 04/23/2024 17:27:30 04/24/19 25 04/23/2024 CMP (FEMA LE) albumin 4.7 g/dL 3.5-5. 5 Not Available [facility] [address] [facility] 1, [place], [address], 04/23/2024 17:27:30 04/24/19 25 04/23/2024 CMP (FEMA LE) globulin 3.1 calc Not Available [facility] [address] [facility] [address], [place], [address], 04/23/2024 17:27:30 04/24/19 25 04/23/2024 CMP (FEMA LE) AST (SGOT) 46.0 U/L 0.0-46 .0 Not Available [facility] [address] [facility] [address], [place], [address], 04/23/2024 17:27:30 04/24/19 25 04/23/2024 CMP (FEMA LE) altv (SGPT) 26.0 U/L 13.0-6 9.0 normal Not Available [facility] [address] [facility] [address], [place], [address], 04/23/2024 17:27:30 04/24/19 25 04/23/2024 CMP (FEMA LE) A/G ratio 1.5 ratio Not Available [facility] [address], [place], [address], 04/23/2024 17:27:30 04/24/19 25 04/23/2024 CMP (FEMA LE) ALP phos 94.0 U/L 30.0-1 40.0 normal Not Available [facility] [address] [facility] [address], [place], [address], 04/23/2024 17:27:30 04/24/19 25 04/23/2024 CMP (FEMA LE) calcium 9.4 mg/dL 8.4-10 .5 Not Available [facility] [address] [facility] [address], [place], [address], 04/23/2024 17:27:30 04/24/19 25 04/23/2024 CMP (FEMA LE) sodium 141.0 mmol/ L 136.0- 145.0 Not Available [facility] [address] [facility] 1, [place], [address], 04/23/2024 17:27:30 04/24/19 25 04/23/2024 CMP (FEMA LE) potassium 3.8 mmol/ L 3.5-5. 1 Not Available [facility] [address] [facility] [address], [place], [address], 04/23/2024 17:27:30 04/24/19 25 04/23/2024 CMP (FEMA LE) chloride 105.0 mmol/ L 98.0-1 10.0 normal Not Available [facility] [address] [facility] [address], [place], [address], 04/23/2024 17:27:30 04/24/19 25 04/23/2024 CMP (FEMA LE) C02 26.0 mmol/ L 22.0-3 1.0 Not Available [facility] [address] [facility] [address], [place], [address], 04/23/2024 17:27:30 04/24/19 25 04/23/2024 CMP (FEMA LE) anion gap 10.0 calc Not Available [facility] [address] [facility] [address], [place], [address], 04/23/2024 17:27:30 04/24/19 25 04/23/2024 CMP (FEMA LE) osmolality 289.9 calc Not Available [facility] [address] [facility] [address], [place], [address], 04/23/2024 17:27:30 04/25/19 25 04/23/2024 elect rocar diogr am, routi ne ECG, 12 leads min No observ ation record ed. [email or web address] [facility]) [address] [place], [address], 04/25/2024 13:25:35 04/30/19 25 04/23/2024 elect rocar diogr am, routi ne ECG, 12 leads min No observ ation record ed. [email or web address] [facility] ([facility]) [address] [place], [address], 04/30/2024 08:47:40 Result Notes None recorded. Problems Name Problem SNOMED Code Status Onset Date Resolution Date Notes Provider Name and Address Organization Details Recorded Time Mass of left ovary 445840065750 90468 Active KALEB ricardo [facility] 5 15:35:15 Migraine variants 146826137 Active KALEB ricardo [facility] 5 15:34:59 Dysmenorr hea 844732567 Active KALEB ricardo [facility] 5 15:35:19 Menorrhag ia 883737678 Active KALEB ricardo [facility] 5 15:35:22 Pain in female genitalia on intercour se 04751594 Completed 04/23/2024 KALEB ricardo [facility] 5 15:35:04 Normal in primigrav rolando 143609970724 103 Completed 202304/23/2024 KALEB ricardo [facility] 5 15:34:55 Normal in primigrav rolando 589231543187 103 Completed 2023 Yuridia Jaramillo MD [address] [place] [address], [address] , [facility] 4 12:45:50 Dizziness 696939533 Active 2024 KALEB ricardo [facility] 5 15:48:36 Problem Notes None recorded. Procedures Surgical History Date Name Laterality Status Provider Name and Address Organization Details Recorded Time 12/11/19 24 section completed KALEB GARCIA [facility] 12/19/2023 16:07:02 03/10/19 24 Date [facility] 11:12:53 [facility] 11:14:10 Imaging Results None recorded. Procedure Notes None recorded. Medical Equipment None Reported. Allergies No known drug allergies Medications Name Sig Start Date Stop Date Status Note LastModified by Organization Details LastModified Time prednisone 20 mg tablet TAKE 1 TABLET BY MOUTH TWICE A DAY FOR 10 DAYS 05/22 completed Not Available Not Available Not Available meclizine 12.5 mg tablet Take 1 tablet twice a day by oral route as needed. 04/23 completed Not Available Not Available Not Available ibuprofen 200 mg tablet Take 2 tablets every 6 hours by oral route. 04/15 completed Not Available Not Available Not Available hydrocortis one 2.5 % topical cream APPLY A THIN LAYER TO THE AFFECTED AREA(S) BY TOPICAL ROUTE 2 TIMES PER DAY 01/15 completed Not Available Not Available Not Available fluticasone propionate 50 mcg/actuati on nasal spray,suspe nsion [place] 1 spray twice a day by intranasa l route for 14 days. 04/23 completed Not Available Not Available Not Available clotrimazol e 1 % topical cream APPLY TO THE AFFECTED AND SURROUNDI NG AREAS OF SKIN BY TOPICAL ROUTE 2 TIMES PER DAY IN THE MORNING AND EVENING 01/15 completed Not Available Not Available Not Available amoxicillin 875 mg-potassiu m clavulanate 125 mg tablet TAKE 1 TABLET BY MOUTH EVERY 12 HOURS FOR 10 DAYS 05/22 completed Not Available Not Available Not Available 01/15 completed Not Available Not Available Not Available Vitals Date Recorded Body height Body mass index (BMI) Body weight Oxygen saturation Oxygen saturation in Arterial blood by Pulse oximetry Heart rate Respiratory rate Body temperature Systolic And Diastolic Provider Name and Address Organization Details Last Updated DateTime 170.18 cm 24.7 kg/m2 93259.5 9 g 98 % 98 % 90 /min 16 /min 98.2 [degF] 118/74 mm[Hg] Bella Acevedo [facility] 5 17:34:58 Date Recorded Body height Body mass index (BMI) Body weight Oxygen saturation Oxygen saturation in Arterial blood by Pulse oximetry Heart rate Body temperature Respiratory rate Heart rate Heart rate Systolic And Diastolic Systolic And Diastolic Systolic And Diastolic Provider Name and Address Organization Details Last Updated DateTime 5 170.18 cm 25 kg/m2 33270.2 9 g 99 % 99 % 68 /min 97.9 [degF] 16 /min 76 /min 84 /min 112/70 mm[Hg] 110/74 mm[Hg] 104/76 mm[Hg] KALEB RADHA [facility] 5 15:47:58 Date Recorded Body height Body mass index (BMI) Body weight Oxygen saturation Oxygen saturation in Arterial blood by Pulse oximetry Heart rate Respiratory rate Body temperature Systolic And Diastolic Provider Name and Address Organization Details Last Updated DateTime 5 170.18 cm 24.3 kg/m2 67001.9 2 g 99 % 99 % 81 /min 18 /min 98.5 [degF] 100/64 mm[Hg] ERVIN HUNT [facility] 5 15:07:24 Date Recorded Body height Body mass index (BMI) Body weight Oxygen saturation Oxygen saturation in Arterial blood by Pulse oximetry Heart rate Respiratory rate Body temperature Systolic And Diastolic Provider Name and Address Organization Details Last Updated DateTime 4 170.18 cm 26.7 kg/m2 90868.1 g 97 % 97 % 79 /min 18 /min 97.9 [degF] 120/68 mm[Hg] ERVIN BOLIVARTNJabier [facility] 4 12:57:11 Date Recorded Body height Body weight Oxygen saturation Oxygen saturation in Arterial blood by Pulse oximetry Heart rate Respiratory rate Body temperature Systolic And Diastolic Provider Name and Address Organization Details Last Updated DateTime 4 170.18 cm 07476.7 3 g 98 % 98 % 75 /min 18 /min 97.8 [degF] 118/70 mm[Hg] DARRELIYV GILBERT BRICE [facility] 10:53:30 Social History Question Answer Notes LastModified by Organizat ion Details LastModified Time Tobacco Smoking Status Never Smoker ERVIN JOHN davion [facility] 05/23/2023 11:15:22 Do You Or Have You Ever Used Marijuana? Never Used Information not available 09/09/2024 What Was The Date Of Your Most Recent Tobacco Screening? 09/09/2024 Information not available 09/09/2024 What Is Your Relationship Status? Domestic Partner Information not available 05/23/2023 Are You Sexually Active? Yes Information not available 05/23/2023 Sex: Unknown Functional Status Question Answer Note LastModified by Organizat ion Details LastModified Time Do you use any illicit or recreational drugs? No Information not available 05/23/2023 Do you or have you ever used any other forms of tobacco or nicotine? No [email or web address] Information not available 04/23/2024 What is your level of alcohol consumption? Occasional Information not available 09/09/2024 Are you able to care for yourself independently? Yes Information not available 05/23/2023 Mental Status None recorded. Family History Nothing Reported Notes:maternal grandmother- skin cancer Medical History No medical history recorded. Gynecological History Statement/Question Response Abnormal Pap N Date of Last Pap Smear 03/10/2023 Sexually Active? Y Obstetrics History GPAL:G 2 P 1 0 1 1 Type Value Full Term 1 Spontaneous 1 Living 1 Total 2 Past Encounters Encounter ID Performer Location Encounter Start Date Encounter Closed Date Diagnosis/Indication Diagnosis SNOMED-CT Code Diagnosis ICD10 Code Diagnosis IMO Codes Diagnosis Note [id number] SHANE GALARZA [facility] [address] [place] [address] 07/27/2022 16:25:25 08/07/2022 12:06:18 Acute tonsillitis 90318968 J03.90 Start Augmentin BID x 10 days. Encouraged to continue tylenol and ibuprofen as needed for pain and fever. Push fluids and use cool mist humidifier at night. Change toothbrush out after 2 days of antibiotic s. If worsening condition or no improvemen t in 5-7 days, return for further evaluation . Work note given to patient, can return after 24 hours of antibiotic s. [id number] Robbie Sandoval MD [facility]) [address] [place] [phone] 5 04/12/2023 16:54:12 04/12/2023 17:24:29 Nausea 862357404 R11.0 26247231 Z33.1 Patient's test was positive. Copy of positive results provided for the patient. Recommend continuing vitamins. Discussed new with the patient and encouraged the patient to establish care with OB provider. [id number] Yuridia Jaramillo MD [facility]) [address] [place] [address] 05/23/2023 09:56:00 05/23/2023 12:04:43 Normal in primigravida 3352685964 43507 Z34.01 Gestation period, 11 weeks 88367916 Z3A.11 [id number] Yuridia Jaramillo MD [facility]) [address] [place] [id number] 5 06/18/2023 10:01:48 06/18/2023 11:03:51 Normal in primigravida 8397217154 53699 Z34.01 [id number] Yuridia Jaramillo MD [facility]) [address] [place] [address] 5 07/17/2023 12:46:22 07/17/2023 13:46:58 Normal in primigravida 9153564006 38605 Z34.01 Gestation period, 19 weeks 89927474 Z3A.19 [id number] Yuridia Jaramillo MD [facility]) [address] [place] [phone] 5 07/30/2023 10:25:27 07/31/2023 14:23:08 [id number] AMY RIVERO [facility] [address] [place] [phone] 5 08/22/2023 14:36:54 08/22/2023 17:01:03 Fit to return to work 774205761 Z78.9 work note provided to return to work with no restrictio ns. Headache 70091522 R51.9 resolved. [id number] Yuridia Jaramillo MD [facility]) [address] [place] [phone] 5 08/29/2023 11:43:17 08/29/2023 12:51:52 Normal in primigravida 0697959616 42510 Z34.01 Gestation period, 25 weeks 62269555 Z3A.25 [id number] Yuridia Jaramillo MD [facility]) [address] [place] [phone] 5 09/10/2023 10:47:47 09/10/2023 11:51:18 Normal in primigravida 0107296000 39043 Z34.02 Gestation period, 26 weeks 53790201 Z3A.26 [id number] Yuridia Jaramillo MD [facility]) [address] [place] [address] 5 09/24/2023 10:55:34 09/24/2023 11:48:23 Normal in primigravida 1205912337 61445 Z34.03 Gestation period, 28 weeks 91942483 Z3A.28 [id number] Yuridia Jaramillo MD [facility]) [address] [place] [address] 5 09/24/2023 08:54:33 09/26/2023 04:07:24 [id number] Yuridia Jaramillo MD [facility] [address] [place] [address] 5 10/09/2023 10:45:11 10/09/2023 11:21:00 Normal in primigravida 0463639123 49203 Z34.03 Gestation period, 31 weeks 17883829 Z3A.31 [id number] Yuridia Jaramillo MD [facility] [address] [place] [id number] 5 10/23/2023 10:42:27 10/23/2023 13:06:07 Normal in primigravida 0684070868 68685 Z34.03 Gestation period, 33 weeks 84170459 Z3A.33 [id number] Yuridia Jaramillo MD [facility] [address] [place] [id number] 5 11/05/2023 10:42:48 11/05/2023 11:50:50 Normal in primigravida 4193153255 54772 Z34.03 Gestation period, 34 weeks 96783575 Z3A.34 [id number] Yuridia Jaramillo MD [facility] [address] [place] [id number] 5 11/19/2023 10:54:09 11/19/2023 14:15:30 Normal in primigravida 4932709762 72222 Z34.03 Gestation period, 36 weeks 27332191 Z3A.36 [id number] Yuridia Jaramillo MD [facility] [address] [place] [id number] 5 11/26/2023 11:01:57 11/26/2023 13:06:40 Normal in primigravida 0620422960 07907 Z34.03 Gestation period, 37 weeks 46362678 Z3A.37 [facility] 840893730 R 55 [id number] Yuridia Jaramillo MD [facility] [address] [place] [id number] 5 12/03/2023 11:00:10 12/03/2023 12:54:45 Normal in primigravida [id number] 00390 Z34.03 Gestation period, 38 weeks [id number] Z3A.38 [id number] Yuridia Jaramillo MD [facility] ([facility]) [address] [place] [address] [phone] 5 12/19/2023 15:33:24 12/19/2023 17:29:18 Postoperative visit [id number] Z48.89 Removal of sourav 02109 001 Z48.02 [id number] Yuridia Jaramillo MD [facility] ([facility]) [address] [place] [address] [phone] 5 12/26/2023 12:18:39 12/26/2023 15:02:13 Swelling of vagina 620005263 N76.89 Itching of skin 07549277 0 L29.9 [id number] Yuridia Jaramillo MD [facility] ([facility]) [address] [place] [address] [phone] 5 01/16/2024 10:46:53 01/16/2024 11:41:10 care [id number] Z39.2 [id number] AMY RIVERO [facility] ([facility]) [address] [place] [address] [phone] 5 04/15/2024 17:25:42 04/15/2024 18:22:03 Headache 01387332 R51.9 resolved. Middle ear effusion 1004 [id number] H74.8X9 Discussed use of prescribed medication s. If you develop new/worsen ing s/s then return for re-evaluat ion. [id number] Yuridia Jaramillo MD [facility] ([facility]) [address] [place] [address] [phone] 5 04/23/2024 15:08:57 04/23/2024 16:28:12 Near syncope [id number] R55 Anxiety 32601841 F41.9 Not interested in medication at this time. [id number] Yuridia Jaramillo MD [facility] ([facility]) [address] [place] [address] [phone] 09/09/2024 14:21:55 09/15/2024 18:03:34 Miscarriage [id number] O03.9 50361 Health Concerns Section Related Observation LastModified by Organization Detai ls LastModified Time None Recorded Concern Status LastModified by Organization Details LastModified Time None Recorded Advance Directives Directive None Recorded Payers Insurance Date Sequence Insurance Name Policy Number Policy Ohara Covered Member ID Ohara Member ID Guarantor Name 10/13/2024 [place] [id number] Danna Mendez [id number] Danna Mendez 10/24/2024 [place] [facility]IT[facility] ) [id number] Danna Mendez [id number] Danna Mendez 10/24/2024 1 [place] [id number] Diamond Mendez [id number] Danna Mendez 10/24/2024 2 [place] - [place] [id number] Danna Mendez [id number] Danna Mendez 12/12/2023 1 [employer] Danna Mendez [id number] Danna Mendez Notes Date Note Type Note Provider Name and Address Organization Details Recorded Time 4 text/html Pt had a on 12/11/23, she states she was wearing the adult diapers after giving Pt states her butt was kind of itch so she stopped wearing them but last week her vaginal are started itching and now is swollen and the itching has gotten worse the only relief she gets is scratching and states it now feels raw. Yuridia Jaramillo MD [address] [place] [address], [phone], [facility] 01/14/2024 01:13:05 4 text/html VisitReported by PatientHPIFor associated symptoms, patient reportspelvic painbut reportsno abnormal bleeding,no vaginal discharge,laceration well healed,no constipation,no dysuria,no urinary incontinence,no fever,no problems,no mastitis, andno uterine cramping. For onset/timing, patient reportsdate of delivery: (12/11/23). For context, patient reportsno complications,feeding choice: breast, depression,good support from partner/family,resumed sexual activity no, andresumed menstrual bleeding yes. For contraception plan, patient reportsdeclines contraception. For quality, ( due to distress and mom had a fever). Pt has random sharp pains in her vaginal area Yuridia Jaramillo MD [address] [place] [address], [phone], [facility] 02/15/2024 12:07:43 5 text/html DizzinessReported by PatientROS as noted in the HPI walk in patientpatient is here today for dizziness, headache, and nausea that started today.About 2 weeks ago she had a sinus infection. Feels those symptoms have resolved. Denies fever, cough, or recent trauma. Is . Eating/drinking normally. Denies vomiting. Hx of dizziness episodes that typically pass within 1 minute. Today the dizziness lasted about 3 minutes. AMY RIVERO [address] [place] [address], [phone], [facility] 04/15/2024 18:17:52 5 text/html DizzinessReported by PatientHPIFor associated symptoms, patient reportsfoggy vision,spots in field of vision, andanxiety or unsteady feelingsbut reportsno double vision,no dysphagia,no slurred speech,no difficulty understanding speech,no ringing in the ears, andno pressure in ears. For quality, patient reportsspinningandlighth eadedness. For duration, patient reportsintermittent episodes lasting:andlasts <1 minute. For onset/timing, patient reportsmost recent attacks occured 1 weeks agoandrecurrent. For context, patient reportsnon-smoker. Yuridia Jaramillo MD [address] [place] [address], [phone], [facility] 04/23/2024 16:09:44 5 text/html Pt states she had a miscarriage on 09/02/24, pt states she would have been around weeks, pt is no longer bleeding just some brown discharge, she is no longer cramping but is still having back pain. Yuridia Jaramillo MD [address] [place] [address], [phone], [facility] 09/09/2024 22:38:21 OBGyn Episode Ob Episode Information Episode Created Date Number of Fetuses Patient Bloodtype Patient rh Status Prepregnancy Weight lbs Domestic Partner Domestic Partner Phone Father Name City Wellness Coordinator Status 05/23/19 24 1 O Positive Kelvin CLOSED Fetus Data First Name Last Name Admitted to NICU Weight (g) Sex Living Outcome Pediatric Complications Fetus ID Race Codes Race Delivery Type Abner neri false [id number] 4 M true Full Term [id number] Problems Problem Notes Problem Name Start Date End Date Resolution Snomed Code Not e Normal in primigravida 06/18/2023 [id number] Giovanni Calculation Initial Giovanni Date Initial Exam Date Initial Exam Provider Initial Ultrasound Date Last Menstrual Period Date Ultra Sound Weeks Gestation 12/11/2023 05/23/2023 03/06/2023 0 Eighteen To Twenty Week Giovanni Update Ultra Sound Date Fundal Height At Umbil Quickening Date Ultra Sound Latest Weeks Gestation Final Giovanni Confirmed By Final Giovanni Confirmed Date Final Giovanni Date Ultra Sound Latest Days Gestation 0 12/11/19 24 0 Pre- Flowsheet Flowsheet Date 05/23/2023 Love Score Blood Edema Fundus Height Fundus Units Glucose Ketones Leukocytes Nitrite Labor Signs Protein Cervic Dilation Cervic Effacement Cervic Station Type Weight in lbs Pre/Post Dialysis Refused Weight 159.141772077198 BP Diastolic BP Location Tested BP Systolic BP Type 72 124 sitting Fetus Heart Rate Present A 176 Present Fetus Movement Comments OBI Flowsheet Date 06/18/2023 Love Score Blood Edema Fundus Height Fundus Units Glucose Ketones Leukocytes Nitrite Labor Signs Protein Cervic Dilation Cervic Effacement Cervic Station Type Weight in lbs Pre/Post Dialysis Refused Weight 165.796146133047 BP Diastolic BP Location Tested BP Systolic BP Type 88 L arm 136 sitting Fetus Heart Rate Present Fetus Movement Comments Flowsheet Date 07/17/2023 Love Score Blood Edema Fundus Height Fundus Units Glucose Ketones Leukocytes Nitrite Labor Signs Protein Cervic Dilation Cervic Effacement Cervic Station 20 none trace Type Weight in lbs Pre/Post Dialysis Refused Weight 171.901371052499 BP Diastolic BP Location Tested BP Systolic BP Type 66 122 Fetus Heart Rate Present A 152 Present Fetus Movement A Yes Comments Flowsheet Date 07/30/2023 Love Score Blood Edema Fundus Height Fundus Units Glucose Ketones Leukocytes Nitrite Labor Signs Protein Cervic Dilation Cervic Effacement Cervic Station Type Weight in lbs Pre/Post Dialysis Refused BP Diastolic BP Location Tested BP Systolic BP Type Fetus Heart Rate Present Fetus Movement Comments Flowsheet Date 07/30/2023 Love Score Blood Edema Fundus Height Fundus Units Glucose Ketones Leukocytes Nitrite Labor Signs Protein Cervic Dilation Cervic Effacement Cervic Station Type Weight in lbs Pre/Post Dialysis Refused BP Diastolic BP Location Tested BP Systolic BP Type Fetus Heart Rate Present Fetus Movement Comments u/s on 07/30/23, EGA 21.4, ED D 12/06/23. Unremarkable screening. Flowsheet Date 08/22/2023 Love Score Blood Edema Fundus Height Fundus Units Glucose Ketones Leukocytes Nitrite Labor Signs Protein Cervic Dilation Cervic Effacement Cervic Station Type Weight in lbs Pre/Post Dialysis Refused Stated 174.41230615775 BP Diastolic BP Location Tested BP Systolic BP Type 58 L arm 104 sitting Fetus Heart Rate Present Fetus Movement Comments Flowsheet Date 08/29/2023 Love Score Blood Edema Fundus Height Fundus Units Glucose Ketones Leukocytes Nitrite Labor Signs Protein Cervic Dilation Cervic Effacement Cervic Station 25 cm none none Negative neg Type Weight in lbs Pre/Post Dialysis Refused Weight 176.345212882988 BP Diastolic BP Location Tested BP Systolic BP Type 60 108 Fetus Heart Rate Present A 154 Present Fetus Movement A Yes Comments headache, nausea constipatio n, dizziness Flowsheet Date 09/03/2023 Love Score Blood Edema Fundus Height Fundus Units Glucose Ketones Leukocytes Nitrite Labor Signs Protein Cervic Dilation Cervic Effacement Cervic Station Type Weight in lbs Pre/Post Dialysis Refused BP Diastolic BP Location Tested BP Systolic BP Type Fetus Heart Rate Present Fetus Movement Comments RA completed for Healthy kitty e Flowsheet Date 09/10/2023 Love Score Blood Edema Fundus Height Fundus Units Glucose Ketones Leukocytes Nitrite Labor Signs Protein Cervic Dilation Cervic Effacement Cervic Station 27 cm none trace Type Weight in lbs Pre/Post Dialysis Refused 178.495657487878 BP Diastolic BP Location Tested BP Systolic BP Type 60 R arm 116 sitting Fetus Heart Rate Present A 152 Present Fetus Movement A Yes Comments headaches, heartburn, crampi ng Flowsheet Date 09/24/2023 Love Score Blood Edema Fundus Height Fundus Units Glucose Ketones Leukocytes Nitrite Labor Signs Protein Cervic Dilation Cervic Effacement Cervic Station Type Weight in lbs Pre/Post Dialysis Refused BP Diastolic BP Location Tested BP Systolic BP Type Fetus Heart Rate Present Fetus Movement Comments Flowsheet Date 09/24/2023 Love Score Blood Edema Fundus Height Fundus Units Glucose Ketones Leukocytes Nitrite Labor Signs Protein Cervic Dilation Cervic Effacement Cervic Station 30 cm trace [place] trace Type Weight in lbs Pre/Post Dialysis Refused Weight 184.854082680360 BP Diastolic BP Location Tested BP Systolic BP Type 66 128 Fetus Heart Rate Present A 144 Fetus Movement A Yes Comments cramping, nausea, headaches, heartburn, low back pain Flowsheet Date 10/09/2023 Love Score Blood Edema Fundus Height Fundus Units Glucose Ketones Leukocytes Nitrite Labor Signs Protein Cervic Dilation Cervic Effacement Cervic Station 30 cm none neg Type Weight in lbs Pre/Post Dialysis Refused Weight 180.665414893165 BP Diastolic BP Location Tested BP Systolic BP Type 62 110 Fetus Heart Rate Present A 140 Present Fetus Movement A Yes Comments cramping, nausea, heartburn Flowsheet Date 10/23/2023 Love Score Blood Edema Fundus Height Fundus Units Glucose Ketones Leukocytes Nitrite Labor Signs Protein Cervic Dilation Cervic Effacement Cervic Station 32 cm none trace Negative [place] trace Type Weight in lbs Pre/Post Dialysis Refused Weight 186.714197842246 BP Diastolic BP Location Tested BP Systolic BP Type 62 110 sitting Fetus Heart Rate Present A 156 Present Fetus Movement A Yes Comments cramping, nausea, headache, sob, heartburn, low back pain Flowsheet Date 11/05/2023 Love Score Blood Edema Fundus Height Fundus Units Glucose Ketones Leukocytes Nitrite Labor Signs Protein Cervic Dilation Cervic Effacement Cervic Station 35 cm none 1+ [place] trace Type Weight in lbs Pre/Post Dialysis Refused Weight 189.561319890540 BP Diastolic BP Location Tested BP Systolic BP Type 68 126 Fetus Heart Rate Present A 152 Present Fetus Movement A Yes Comments cramps, heartburn, pelvic pa in, nausea, Flowsheet Date 11/19/2023 Love Score Blood Edema Fundus Height Fundus Units Glucose Ketones Leukocytes Nitrite Labor Signs Protein Cervic Dilation Cervic Effacement Cervic Station 37 cm none trace Negative [place] trace 1cm 30% -4 Type Weight in lbs Pre/Post Dialysis Refused Weight 189.241832832345 BP Diastolic BP Location Tested BP Systolic BP Type 64 110 sitting Fetus Heart Rate Present A 140 Present Fetus Movement A Yes Comments abdomina pain/cramping, naus ea, constipation, sob, heartburn, pelvic pain, group B today, epi consult for 11/26/23 Flowsheet Date 11/23/2023 Love Score Blood Edema Fundus Height Fundus Units Glucose Ketones Leukocytes Nitrite Labor Signs Protein Cervic Dilation Cervic Effacement Cervic Station Type Weight in lbs Pre/Post Dialysis Refused BP Diastolic BP Location Tested BP Systolic BP Type Fetus Heart Rate Present Fetus Movement Comments OB records sentGroupB strep negative Flowsheet Date 11/26/2023 Love Score Blood Edema Fundus Height Fundus Units Glucose Ketones Leukocytes Nitrite Labor Signs Protein Cervic Dilation Cervic Effacement Cervic Station 37 cm none trace Negative [place] trace Type Weight in lbs Pre/Post Dialysis Refused 195.910808411637 BP Diastolic BP Location Tested BP Systolic BP Type 62 110 sitting Fetus Heart Rate Present A 146 Fetus Movement A Yes Comments lightedness, cramping, nause a, blurred vision, sob, pelvic pain, vaginal pressure,pelvic pain, heartburn Flowsheet Date 12/03/2023 Love Score Blood Edema Fundus Height Fundus Units Glucose Ketones Leukocytes Nitrite Labor Signs Protein Cervic Dilation Cervic Effacement Cervic Station 37 cm none trace Negative [place] neg 1cm 70% -4 Type Weight in lbs Pre/Post Dialysis Refused Weight 194.070130275957 BP Diastolic BP Location Tested BP Systolic BP Type 60 100 sitting Fetus Heart Rate Present A 154 Present Fetus Movement A Yes Comments cramping, nausea, dizziness, heartburn, pelvic pain, vaginal pressure Flowsheet Date 12/19/2023 Love Score Blood Edema Fundus Height Fundus Units Glucose Ketones Leukocytes Nitrite Labor Signs Protein Cervic Dilation Cervic Effacement Cervic Station Type Weight in lbs Pre/Post Dialysis Refused Weight 174.579463254940 BP Diastolic BP Location Tested BP Systolic BP Type 56 100 Fetus Heart Rate Present Fetus Movement Comments Menstrual History Last Menstrual Date Menses Monthly On Bcp Conception Prior Menses Frequency Hcg Plus Date Menarche Onset Age 0103/06/2023 Genetic Screening And Infection History Question Response Note Patient's Age Will Be 35 Years Or Older At Estim ated Date of Delivery false Thalassemia (Turkmen, Sierra Leonean, Mediterranean, Or Background): MCV < 80 false Neural Tube Defect (Meningomyelocele, Spina Bifi da, Or Anencephaly) false Congenital Heart Defect false Down Syndrome false Jose-Sachs (eg, Rastafarian, Cajun, Kosovan-[place]) f alse Jose Disease false Sickle Cell Disease Or Trait () false Hemophilia Or Other Blood Disorders false Muscular Dystrophy false Cystic Fibrosis false Petr's Chorea false Intellectual Disability/Autism false If Yes, Was Person Tested For Fragile X? false Other Inherited Genetic Or Chromosomal Disorder false Maternal Metabolic Disorder (eg, Type 1 Diabetes , PKU) false Patient Or Baby's Father Had A Child With Defects Not Listed Above false Recurrent Loss, Or A Stillbirth false Medications (including Suppl ements, Vitamins, Herbs, OTC Drugs), Illicit/Recreational Drugs, Alcohol false If Yes, Agent(s) And Strength/Dosage false Any Other Genetic History false Live With Someone With TB Or Exposed To TB false Patient Or Partner Has History Of Genital Herpes false Rash Or Viral Illness Since Last Menstrual Perio d false History Of STD, Gonorrhea, Chlamydia, HPV, Syphi lis false Other Infection History false History of HIV false History of Hepatitis false Prior GBS-infected child false Hemoglobinopathy Or Carrier false Other Structural Defect false Recent Travel History Outside of Country false Mental Retardation/Autism false Delivery Information Delivery Date Delivery Type Labor Anesthesia Weeks Gestation Incision Type Labor Labor Length Hrs Delivered By Post Complications Tubal Sterilization Discharge Date Comments 4 Sponta neous Regional-Ep idural 40 Low Transvers e false Yuridia Jaramillo MD None false SROM, FTP, and distress Discharge Information Feeding Method Contraceptive Method Maternal HG B and HCT Levels Breast
--- NOTE | 2024-12-03 23:22 | ECG_ITS ---
[facility]: 2024-12[facility]03 Pat Name: Danna Mendez Department: Room: Gender: Female Care Trainer: : 2000 Requested By: Osmany Naylor Order Number: [id number] Camejo MD: Juventino Rowland M.D. Measurements Intervals [place] Rate: 83 P: 61 TN: 120 QRS: 62 QRSD: 80 T: 58 QT: 374 QTc: 441 Interpretive Statements SINUS RHYTHM NONSPECIFIC T-WAVE ABNORMALITY No previous ECG available for comparison Electronically Signed On 12-06-2024 20:33:47 CDT by Juventino Rowland M.D. [email or web address]
[2024-12-03 23:25] VITALS: BP 121/74; PULSE 86; RESP 16; O2SAT 98
[2024-12-03 23:49] LABS: Hematocrit 43.7 % (36-47); Hemoglobin 14.80 g/dL (11.27-16.99); Mean Corpuscular HGB Conc 33.9 g/dL (30-55); Mean Corpuscular Hemoglobin 29.5 pg (27-33); Mean Corpuscular Volume 87.1 fl (85-98); Nucleated Red Blood Cells % 0 %; Platelet Count 215 10^3/cmm (157-399); Red Blood Count 5.02 10^6/uL (3.85-5.65); White Blood Count 10.40 10^3/uL (3.29-11.43)
[2024-12-04] LABS: HCG Qualitative Urine. Negative (Negative)
[2024-12-04 00:07] LABS: Add Urine Microscopic? YES; Glucose Urine UA Negative (Normal); Nitrate Urine Negative (Negative); Specific Gravity, Urine 1.019 (1.005-1.030)
[2024-12-04 00:16] LABS: Troponin(5th) Baseline < 6 ng/L (0-10)
[2024-12-04 00:21] LABS: Alanine Aminotransferase 13 U/L (0-33); Albumin Level 4.7 g/dL (3.5-5.2); Alkaline Phosphatase 97 U/L (35-105); Anion Gap 19.6 (5-19); Aspartate Amino Transferase 17 U/L (0-32); Blood Urea Nitrogen 11 mg/dL (6-20); Calcium 9.4 mg/dL (8.5-10.5); Carbon Dioxide 19 mmol/L (22-29); Chloride 102 mmol/L (98-107); Creatinine Clr Calc Pharmacy 148.5728; Globulin 2.4 g/dL (1.3-4.6); Glucose 92 mg/dL (65-115); Magnesium 2.3 mg/dL (1.7-2.3); Osmolality Calculated 283 mOsm/kg (285-295); Potassium 3.6 mmol/L (3.5-5.1); Sodium 137 mmol/L (136-145); Thyroid Stimulating Hormone 2.38 uIU/mL (0.27-4.20); Total Protein 7.1 g/dL (6.6-8.7)
[2024-12-04 01:33] VITALS: BP 114/71; PULSE 80; RESP 16; O2SAT 100
[2024-12-04 01:52] VITALS: BP 114/71; PULSE 93; RESP 14; O2SAT 99
--- NOTE | 2024-12-05 05:19 | W.ED.GENADLT ---
HPI - General Adult General: Chief complaint: General Medical Stated complaint: numbness left side headache n/v dizzy Time Seen by Provider: 12/03/24 22:08 History of Present Illness: Patient is a 24-year-old female with past medical history of migraines who presents with three days of neurological symptoms including intermittent left-sided facial, arm, and leg numbness, dizziness described as room-spinning, headache of variable location, and generalized weakness. She reports waking up shaking and feeling very weak yesterday morning, with some improvement after eating and drinking water. She also notes increased frequency and urgency of urination, as well as diarrhea and nausea with decreased appetite. She has a prior history of similar dizziness and an ocular migraine during , but denies current vision changes, trauma, recent travel, rashes, or sick contacts. No current medications, has a Nexplanon and she was concerned because she knows there is an increased risk of blood clots with this medications. No family history of stroke or heart attack reported. She did have a previous episode of similar strokelike symptoms previously and had a negative evaluation ultimately. Associated symptoms: Reports headache(s) and nausea Related Data Home Medications ?Medication ?Instructions ?Recorded ?Confirmed 1 tab PO DAILY 12/10/23 12/10/23 Previous Rx's ?Medication ?Instructions ?Recorded hydrocodone 5 mg-acetaminophen 325 1 - 2 tab PO Q4H PRN Moderate To 12/12/23 mg tablet Severe Pain #28 tabs ibuprofen 800 mg tablet 800 mg PO TID #45 tabs 12/12/23 iqldhijnnm-ojomuwongfphs-knyucssc 1 cap PO BID PRN headache #10 caps 12/04/24 50 mg-300 mg-40 mg capsule (Fioricet) Allergies Allergy/AdvReac Type Severity Reaction Status Date / Time No Known Allergies Allergy Verified 12/03/24 22:15 Review of Systems General: Reports: 10 or more systems reviewed and unremarkable except in HPI and below Const: Reports: change in appetite GI: Reports: nausea and diarrhea : Reports: dysuria and urinary frequency Neuro: Reports: headache(s), numbness in extremities and weakness in extremities PFSH ED PFSH: Medical History (Updated 12/12/24 @ 00:00 by AYESHA Agustin) No pertinent past medical history neghx: htn,dm,thyroid,dvt/pe PCP: None Surgical History Hx of wisdom tooth extraction (~2019) Family History Family/Other Stroke Maternal Aunt Denies family history of Colon cancer Ovarian cancer Diabetes Heart disease Hypercholesteremia Breast cancer Hypertension Uterine cancer Thyroid disease Physical Exam Narrative: EXAM NARRATIVE: Well-appearing, afebrile vital signs stable on arrival, no acute distress. GCS 15, alert and oriented x 4, cranial nerves II through XII intact, pupils equal round reactive, no nystagmus, motor and sensation 5 out of 5 in all 4 extremities, sensation present but decreased in very distributions to left arm and left leg, no pronator drift, ljwubb-fn-[id number] intact bilaterally, able to ambulate without ataxia. Breathing comfortably on room air, saturating well, able to speak in full sentences without getting short of breath. Normal sinus rhythm, no murmurs, no leg swelling, 2+ pulses throughout, slightly delayed cap refill. Course Vital Signs: Vital signs: Vital Signs Temperature 97.6 F 12/03/24 22:13 Pulse Rate 93 12/04/24 01:52 Respiratory Rate 14 12/04/24 01:52 Blood Pressure 114/71 12/04/24 01:52 Pulse Oximetry 99 12/04/24 01:52 Oxygen Delivery Me thod Room Air 12/04/24 01:33 MDM - General Adult Medical Decision Making -ddx: Atypical migraine, TIA, stroke, dehydration, enteritis, cystitis, electrolyte abnormality, autoimmune disorder - Patient with 3 days of varying neurosymptoms, fluctuating in timeline, complete detailed neuroexam today with completely no deficits, subjective decrease in sensation but is present in very dermatomes to the left side of her body, NIHSS of 0. Has some urinary symptoms and nausea diarrhea decreased appetite as well. Had a presentation similar to this prior. Because neurosymptoms outside stroke window, no stroke alert called and with nothing notable on exam. Discussed with patient and we will get basic, infectious labs including urine and reevaluate, will hold off on CT head at this time due to previous episodes similar to this and no persistent deficits on exam currently. - Patient with labs consistent with moderate dehydration, 2+ ketones in urine, seemingly correlating with her headache, dizziness worse with ambulation. Urine negative for any UTI. No systemic signs of infection or inflammation, no bloodline abnormalities, no severe electrolyte abnormalities, no PHYLICIA. Patient had resolution of her headache with medication and never had any recurrence of her neurosymptoms here, offered a CTA to further evaluate for this headache with varied neurosymptoms but she was reassured with her relief of her headache and being moderately dehydrated and so after ambulation, p.o. challenging successfully she was able to be discharged with a trial of Fioricet, to stay hydrated and to see neurology for her migraine with atypical features, very strict return precautions given, mother at bedside and agreeable with plan of care. Lab Data 12/03/24 23:40 12/03/24 23:40 Laboratory Results WBC 10.40 10^3/uL (3.29-11.43) 12/03/24 23:40 RBC 5.02 10^6/uL (3.85-5.65) 12/03/24 23:40 Hgb 14.80 g/dL (11.27-16.99) 12/03/24 23:40 Hct 43.7 % (36-47) 12/03/24 23:40 MCV 87.1 fl (85-98) 12/03/24 23:40 MCH 29.5 pg (27-33) 12/03/24 23:40 MCHC 33.9 g/dL (30-55) 12/03/24 23:40 RDW 13.2 % (12.1-15.1) 12/03/24 23:40 Plt Count 215 10^3/cmm (157-399) 12/03/24 23:40 MPV 9.7 fL (7.4-10.4) 12/03/24 23:40 Neut % (Auto) 63.5 % 12/03/24 23:40 Lymph % (Auto) 28.8 % 12/03/24 23:40 Andrew % (Auto) 6.2 % 12/03/24 23:40 Eos % (Auto) 0.9 % 12/03/24 23:40 Baso % (Auto) 0.5 % 12/03/24 23:40 Neut # (Auto) 6.61 10^3/uL (1.8-7.7) 12/03/24 23:40 Lymph # (Auto) 3.0 10^3/uL (0.8-4.8) 12/03/24 23:40 Andrew # (Auto) 0.6 10^3/uL (0.2-0.9) 12/03/24 23:40 Eos # (Auto) 0.1 10^3/uL (0.0-0.8) 12/03/24 23:40 Baso # (Auto) 0.1 10^3/uL (0.0-0.1) 12/03/24 23:40 Nucleated RBC % (auto) 0 % 12/03/24 23:40 Nucleated RBCs # 0.0 /100WBC 12/03/24 23:40 D-Dimer 0.48 ug/mLFEU (0-0.59) 12/03/24 23:40 Sodium 137 mmol/L (136-145) 12/03/24 23:40 Potassium 3.6 mmol/L (3.5-5.1) 12/03/24 23:40 Chloride 102 mmol/L (98-107) 12/03/24 23:40 Carbon Dioxide 19 mmol/L (22-29) L 12/03/24 23:40 Anion Gap 19.6 (5-19) H 12/03/24 23:40 BUN 11 mg/dL (6-20) 12/03/24 23:40 Creatinine 0.6 mg/dL (0.5-0.9) 12/03/24 23:40 GFR Calculation 123.9 mL/min (90-130) 12/03/24 23:40 Glucose 92 mg/dL (65-115) 12/03/24 23:40 Calculated Osmolality 283 mOsm/kg (285-295) L 12/03/24 23:40 Calcium 9.4 mg/dL (8.5-10.5) 12/03/24 23:40 Phosphorus 3.0 mg/dL (2.5-4.5) 12/03/24 23:40 Magnesium 2.3 mg/dL (1.7-2.3) 12/03/24 23:40 Total Bilirubin 0.7 mg/dL (0.15-1.2) 12/03/24 23:40 AST 17 U/L (0-32) 12/03/24 23:40 ALT 13 U/L (0-33) 12/03/24 23:40 Alkaline Phosphatase 97 U/L (35-105) 12/03/24 23:40 Troponin T Baseline < 6 ng/L (0-10) 12/03/24 23:40 C-Reactive Protein 3.0 mg/L (0.0-4.9) 12/03/24 23:40 Total Protein 7.1 g/dL (6.6-8.7) 12/03/24 23:40 Albumin 4.7 g/dL (3.5-5.2) 12/03/24 23:40 Globulin 2.4 g/dL (1.3-4.6) 12/03/24 23:40 TSH 2.38 uIU/mL (0.27-4.20) 12/03/24 23:40 HCG, Qual Negative (Negative) 12/03/24 23:50 Urine Color Yellow (Yellow) 12/03/24 23:50 Urine Appearance Clear (CLEAR) 12/03/24 23:50 Urine pH 5.5 (5-7) 12/03/24 23:50 Ur Specific [place] 1.019 (1.005-1.030) 12/03/24 23:50 Urine Protein Negative (Negative) 12/03/24 23:50 Urine Glucose (UA) Negative (Normal) 12/03/24 23:50 Urine Ketones 2+ (Negative) H 12/03/24 23:50 Urine Blood Negative (Negative) 12/03/24 23:50 Urine Nitrate Negative (Negative) 12/03/24 23:50 Urine Bilirubin Negative (Negative) 12/03/24 23:50 Urine Urobilinogen 1.0 mg/dL (Negative) 12/03/24 23:50 Ur Leukocyte Esterase Negative (Negative) 12/03/24 23:50 Urine RBC 0-2 /hpf (0-2) 12/03/24 23:50 Urine WBC 0-5 /hpf (0-5) 12/03/24 23:50 Ur Squamous Epith Cells 6-10 /hpf (0-5) 12/03/24 23:50 Amorphous Sediment Not Reportable 12/03/24 23:50 Urine Bacteria Trace /hpf (NONE) 12/03/24 23:50 Hyaline Casts 0.81 /lpf 12/03/24 23:50 All radiology interpretation(s) finalized by discharge Discharge Plan Discharge Patient Disposition: Home Clinical Impression: Atypical migraine, Dehydration Condition: Stable Prescriptions: New jabcusktoc-vtuhlepvywszx-ncuc [Fioricet] 50-300-40 mg capsule 1 cap PO BID PRN (Reason: headache) Qty: 10 0RF No Action 1 tab PO DAILY ibuprofen 800 mg Tablet 800 mg PO TID Qty: 45 0RF hydrocodone-acetaminophen 5-325 mg Tablet 1 - 2 tab PO Q4H PRN (Reason: Moderate To Severe Pain) Qty: 28 0RF Discharge Orders: Discharge ED (Routine); Ordered 12/04/24 Ordered By: Osmany Naylor Referrals: Izaiah Bustillos MD [Primary Care Provider, Family Practice] Patient Instructions: Opioid Safety, Pain Management, Patient Portal & Kaylynn Instructions Activity Restrictions/Additional Instructions: You were seen for your headache, numbness and dizziness, you were evaluated with labs and an EKG that were ultimately reassuring for no emergent conditions today. You are found to be moderately dehydrated. You improved with fluids and headache medication and were deemed stable to be discharged home. For headaches in the future, trial using the Fioricet, 1 tablet every 12 hours as needed when the headache first starts to try and prevent it from worsening, do not take this medication when driving or operating heavy machinery as it can be sedating. Use the Zofran, 4 mg every 8 hours as needed for any nausea. If you continue to have more progressive and frequent headaches, talk to your primary care doctor about getting a neurology appointment for possible MRI of your brain. Return to the ED with severe worsening of her headache, confusion, continuous vomiting, fevers, any other emergent concerns. Print Language: Icelandic Coding Level of Care Code ED [employer] for Viviana York
== END 2024-12-04 01:54 | disposition home or self-care (01) ==
PROVIDERS: Emergency Provider Student in an Organized Health Care Education/Training Program; PCP Family Medicine
DX: G43.809 Other migraine, not intractable, without status migrainosus (principal); E86.0 Dehydration
CPT/HCPCS: 36415; 80053; 81001; 81025; 83735; 84100; 84443; 84484; 85025; 85378; 86140; 93005; 99284